=== PATIENT | female | born 1985 | race Caucasian/White ===

== ENCOUNTER 2016-10-07 19:54 | Emergency (ER) | payer BC ==
[2016-10-07 20:01] VITALS: TEMP 98.2; BMI 24.0
[2016-10-07] MEDS ORDERED: SODIUM CHLORIDE 1,000 ML IV STA (20:39)
[2016-10-07] MEDS ORDERED: ACETAMINOPHEN 325 MG TABLET (FP) PO ONE (20:39)
--- NOTE | 2016-10-07 20:39 | PDOC ---
History of Present Illness - General History Source: Patient Exam Limitations: No Limitations - History of Present Illness Initial Comments: 10/07/16 20:45 The patient is a 31 year old female with a significant PMH of anemia and ovarian cysts who presents to the emergency department with RLQ abdominal pain beginning a few days ago. The patient describes the pain as a burning sensation that radiates to the back and the epigastric region. The patient notes that the abdominal pain became worse from yesterday to today, and decided to come to the ED. She reports associated reduced appetite with her abdominal pain. The patient notes that her abdominal pain is alleviated in the morning, but becomes worse during the evening. The patient denies chest pain, shortness of breath, headache and dizziness. Denies fever, chills, nausea, vomit, diarrhea and constipation. Denies dysuria, frequency, urgency and hematuria. Allergies: NKDA Past surgical history: Right wrist surgery Social history: No reported cigarette, alcohol, or drug use. 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 <Wm Scott - Last Filed: 10/08/16 00:39> - General History Source: Patient Exam Limitations: No Limitations <Wm Leiva - Last Filed: 10/08/16 03:47> - General Chief Complaint: Pain Stated Complaint: PAIN, ACUTE Time Seen by Provider: 10/07/16 20:04 Past History <Wm Scott - Last Filed: 10/08/16 00:39> - Psycho/Social/Smoking Cessation Hx Anxiety: No Suicidal Ideation: No Smoking History: Never smoked Have you smoked in the past 12 months: No Information on smoking cessation initiated: No Hx Alcohol Use: No Drug/Substance Use Hx: No Substance Use Type: None <Wm Leiva - Last Filed: 10/08/16 03:47> - Past Medical History Allergies/Adverse Reactions: Allergies Allergy/AdvReac Type Severity Reaction Status Date / Time No Known Allergies Allergy Verified 10/07/16 20:00 Home Medications: Ambulatory Orders Naproxen [Naprosyn -] 500 mg PO BID PRN #28 tablet 10/08/16 Review of Systems - Review of Systems Comments:: 10/07/16 20:45 GENERAL/CONSTITUTIONAL: No fever or chills. No weakness. HEAD, EYES, EARS, NOSE AND THROAT: No change in vision. No ear pain or discharge. No sore throat. CARDIOVASCULAR: No chest pain or shortness of breath. RESPIRATORY: No cough, wheezing, or hemoptysis. GASTROINTESTINAL: (+) RLQ pain radiating to back and epigastric region. No nausea, vomiting, diarrhea or constipation. GENITOURINARY: No dysuria, frequency, or change in urination. MUSCULOSKELETAL: No joint or muscle swelling or pain. No neck or back pain. SKIN: No rash NEUROLOGIC: No headache, vertigo, loss of consciousness, or change in strength/ sensation. ENDOCRINE: No increased thirst. No abnormal weight change. HEMATOLOGIC/LYMPHATIC: (+) Anemia. No easy bleeding or history of blood clots. ALLERGIC/IMMUNOLOGIC: No hives or skin allergy. <Wm Scott - Last Filed: 10/08/16 00:39> *Physical Exam - Vital Signs Last Vital Signs Temp Pulse Resp BP Pulse Ox 98.2 F 73 17 124/59 98 10/07/16 19:58 10/07/16 19:58 10/07/16 19:58 10/07/16 19:58 10/07/16 19:58 - Physical Exam Comments: 10/07/16 20:47 GENERAL: Awake, alert, and fully oriented, in no acute distress HEAD: No signs of trauma EYES: PERRLA, EOMI, sclera anicteric, conjunctiva clear ENT: Auricles normal inspection, hearing grossly normal, nares patent, oropharynx clear without exudates. Moist mucosa NECK: Normal ROM, supple, no lymphadenopathy, JVD, or masses LUNGS: Breath sounds equal, clear to auscultation bilaterally. No wheezes, and no crackles HEART: Regular rate and rhythm, normal S1 and S2, no murmurs, rubs or gallops ABDOMEN: (+) Suprapubic RLQ & LLQ tender to palpation. Soft, normoactive bowel sounds. No guarding, no rebound. No masses EXTREMITIES: Normal range of motion, no edema. No clubbing or cyanosis. No cords, erythema, or tenderness NEUROLOGICAL: Cranial nerves II through XII grossly intact. Normal speech, normal gait SKIN: Warm, Dry, normal turgor, no rashes or lesions noted. <Wm Scott - Last Filed: 10/08/16 00:39> - Vital Signs Last Vital Signs Temp Pulse Resp BP Pulse Ox 98.2 F 73 17 124/59 98 10/07/16 19:58 10/07/16 19:58 10/07/16 19:58 10/07/16 19:58 10/07/16 19:58 <Wm Leiva - Last Filed: 10/08/16 03:47> ED Treatment Course - LABORATORY CBC & Chemistry Diagram: 10/07/16 20:42 10/07/16 20:42 - RADIOLOGY Radiograph Interpretation: 10/08/16 00:39 Exam: Transvaginal US, interpreted by Dr. Nieves. Read by Dr. Leiva. Impression: Small cyst/follicle in the right and left ovary. Fibroid uterus, as described above. <Wm Scott - Last Filed: 10/08/16 00:39> - LABORATORY CBC & Chemistry Diagram: 10/07/16 20:42 10/07/16 20:42 - RADIOLOGY Radiology Studies Ordered: Category Date Time Status ABDOMEN & PELVIS CT WITH CONTR [CT] Stat CT Scan 10/07/16 20:35 Ordered TRANSVAGINAL ULTRASOUND US [US] Stat Ultrasound 10/07/16 20:35 Ordered <Wm Leiva - Last Filed: 10/08/16 03:47> Medical Decision Making - Medical Decision Making 10/07/16 20:37 A portion of this note was documented by scribe services under my direction. I have reviewed the details of the note, within reason, and agree with the documentation with the following case summary and management plan written by me. Patient treated in the ED. Nursing notes are reviewed and incorporated into the medical decision-making. Vital signs reviewed. Peripheral IV access obtained by the nurse, laboratory studies are drawn and sent, reviewed and interpreted by myself. Vital Signs Temp Pulse Resp BP Pulse Ox 98.2 F 73 17 124/59 98 10/07/16 19:58 10/07/16 19:58 10/07/16 19:58 10/07/16 19:58 10/07/16 19:58 31-year-old female patient with no past medical history presents with lower abdominal pain for several days. Patient reports that the pain is worsened today and is now constant. Associated with decreased appetite but denies nausea , vomiting, fevers, dysuria or vaginal bleeding. Patient's last menstrual period is September 23. We'll obtain a urine test. If the test is negative, we'll need to rule out appendicitis versus ovarian cyst rupture. Labs, CAT scan, transvaginal ultrasound and reassess. 10/08/16 03:44 Transvaginal ultrasound ordered. Small cyst and follicle the right and left ovary. Fibroid uterus. CAT scan abdomen pelvis reviewed. Demonstrates ovarian cyst but no signs of appendicitis. CBC, BMP 10/07/16 20:42 10/07/16 20:42 CMP Sodium 136 mmol/L (136-145) 10/07/16 20:42 Potassium 4.0 mmol/L (3.5-5.1) 10/07/16 20:42 Chloride 103 mmol/L (98-107) 10/07/16 20:42 Carbon Dioxide 27 mmol/L (21-32) 10/07/16 20:42 Anion Gap 6 (8-16) L 10/07/16 20:42 BUN 12 mg/dL (7-18) 10/07/16 20:42 Creatinine 0.5 mg/dL (0.55-1.02) L 10/07/16 20:42 Creat Clearance w eGFR > 60 (>60) 10/07/16 20:42 Random Glucose 86 mg/dL (74-106) 10/07/16 20:42 Calcium 9.3 mg/dL (8.5-10.1) 10/07/16 20:42 Total Bilirubin 0.2 mg/dL (0.2-1.0) 10/07/16 20:42 AST 9 U/L (15-37) L 10/07/16 20:42 ALT 19 U/L (12-78) 10/07/16 20:42 Alkaline Phosphatase 47 U/L (45-117) 10/07/16 20:42 Total Protein 7.8 g/dl (6.4-8.2) 10/07/16 20:42 Albumin 3.8 g/dl (3.4-5.0) 10/07/16 20:42 Lipase 155 U/L (73-393) 10/07/16 20:42 Urine Test Results Urine Color Ltyellow 10/07/16 21:33 Urine Appearance Clear 10/07/16 21:33 Urine pH 6.0 (5.0-8.0) 10/07/16 21:33 Ur Specific [place] 1.015 (1.005-1.025) 10/07/16 21:33 Urine Protein Negative (NEGATIVE) 10/07/16 21:33 Urine Glucose (UA) Negative (NEGATIVE) 10/07/16 21:33 Urine Ketones Negative (NEGATIVE) 10/07/16 21:33 Urine Blood 1+ (NEGATIVE) H 10/07/16 21:33 Urine Nitrite Negative (NEGATIVE) 10/07/16 21:33 Urine Bilirubin Negative (NEGATIVE) 10/07/16 21:33 Ur Leukocyte Esterase Negative (NEGATIVE) 10/07/16 21:33 10/08/16 03:44 Urine test negative. I suspect the patient likely had a ruptured ovarian cyst. I checked the patient to follow-up with her SHIPPING PROCESSOR doctor. Return precautions given. Patient will be taken home by her . I discussed the physical exam findings, ancillary test results and final diagnoses with the patient. I answered all of the patient's questions. The patient was satisfied with the care received and felt comfortable with the discharge plan and treatment plan. The patient will call their primary care physician within 24 hours to arrange follow-up and will return to the Emergency Department with any new, persistant or worsening symptoms. <Wm Leiva - Last Filed: 10/08/16 03:47> *DC/Admit/Observation/Transfer - Attestations Scribe Attestion: 10/07/16 20:47 Documentation prepared by Wm Scott, acting as medical billing supervisor for Wm Leiva MD. <Wm Scott - Last Filed: 10/08/16 00:39> - Discharge Dispostion Admit: No <Wm Leiva - Last Filed: 10/08/16 03:47> Diagnosis at time of Disposition: Ovarian cyst Qualifiers: Laterality: bilateral Qualified Code(s): N83.201 - Unspecified ovarian cyst, right side Fibroids Qualifiers: Uterine leiomyoma location: unspecified location Qualified Code(s): D25.9 - Leiomyoma of uterus, unspecified - Discharge Dispostion Disposition: HOME Condition at time of disposition: Improved - Prescriptions Prescriptions: Naproxen [Naprosyn -] 500 mg PO BID PRN #28 tablet PRN Reason: Pain - Referrals Referrals: Maxx Arora MD [Staff Physician] - - Patient Instructions Printed Discharge Instructions: DI for Uterine Fibroids, DI for Ovarian Cyst Additional Instructions: Your CAT scan and ultrasound demonstrates ovarian cyst and fibroids. Take 500 mg of naproxen every 12 hours needed for pain. Please follow-up with an oncologist for further evaluation. It may take several days before your symptoms improved.
[2016-10-07 21:01] LABS: EOSINOPHIL 1.1 % (0-4.5); MCH 26.2 pg (25.7-33.7); MCHC 33.2 g/dl (32.0-36.0); MEAN CELL VOLUME 79.1 fl (80-96); MEAN PLT VOLUME 8.2 fl (7.5-11.1); NEUTROPHILS 42.2 % (42.8-82.8); PLATELET COUNT 453 K/MM3 (134-434); RDW 13.1 % (11.6-15.6); WHITE BLOOD COUNT 7.5 K/mm3 (4.0-10.0)
[2016-10-07] MEDS ORDERED: ACETAMINOPHEN 325 MG TABLET (FP) ONE (21:30)
[2016-10-07 21:34] LABS: ALBUMIN 3.8 g/dl (3.4-5.0); ALK PHOS 47 U/L (45-117); ANION GAP 6 (8-16); BILIRUBIN,TOTAL 0.2 mg/dL (0.2-1.0); CALCIUM 9.3 mg/dL (8.5-10.1); CO2 27 mmol/L (21-32); CREATININE 0.5 mg/dL (0.55-1.02); GLUCOSE,RANDOM 86 mg/dL (74-106); SGOT/AST 9 U/L (15-37); SGPT/ALT 19 U/L (12-78); TOT PROT 7.8 g/dl (6.4-8.2)
[2016-10-07 21:45] LABS: URINE APPEARANCE CLEAR; URINE BILIRUBIN NEGATIVE (NEGATIVE); URINE BLOOD 1+ (NEGATIVE); URINE COLOR LTYELLOW; URINE GLUCOSE (UA) NEGATIVE (NEGATIVE); URINE KETONE NEGATIVE (NEGATIVE); URINE LEUK ESTERASE NEGATIVE (NEGATIVE); URINE NITRITE NEGATIVE (NEGATIVE); URINE PROTEIN NEGATIVE (NEGATIVE); URINE UROBILINOGEN NEGATIVE mg/dL (0.2-1.0)
[2016-10-08] MEDS ORDERED: SODIUM CHLORIDE 1,000 ML IV STA (03:08)
[2016-10-08] MEDS ORDERED: KETOROLAC TROMETHAMINE 30 MG/1 ML VIAL IVPUSH ONE (03:44)
[2016-10-08] MEDS ORDERED: KETOROLAC TROMETHAMINE 30 MG/1 ML VIAL ONE (03:53)
[2016-10-08 04:07] VITALS: BP 100/52; PULSE 91
== END 2016-10-08 04:07 | disposition home or self-care (01) ==
LOC: SUPCPDRO 19:54 → JER 19:54
PROC: 3E0337Z Introduction of Electrolytic and Water Balance Substance into Peripheral Vein, Percutaneous Approach (ICD-10-PCS; principal; 2016-10-07)
PROC: 3E0333Z Introduction of Anti-inflammatory into Peripheral Vein, Percutaneous Approach (ICD-10-PCS; 2016-10-07)
DX: N83.201 Unspecified ovarian cyst, right side (principal); D25.9 Leiomyoma of uterus, unspecified
CPT/HCPCS: 74177-TC; 76830-TC; 80053; 81003; 81015; 83690; 84703; 87086; 96361; 96374; 99283-25

== ENCOUNTER 2018-10-15 12:41 | Emergency (ER) | payer BC, OTHER ==
[2018-10-15 12:54] VITALS: BP 128/72; PULSE 69; TEMP 98.6; BMI 26.4
[2018-10-15] MEDS ORDERED: ACETAMINOPHEN 500 MG TABLET (FP) PO ONE (14:14)
[2018-10-15] MEDS ORDERED: ACETAMINOPHEN 325 MG TABLET (FP) ONE (14:40)
--- NOTE | 2018-10-15 15:00 | PDOC ---
History of Present Illness - General Chief Complaint: Vaginal Bleeding Stated Complaint: PELVIC PAIN/VAGINAL BLEEDING Time Seen by Provider: 10/15/18 14:10 History Source: Patient Exam Limitations: No Limitations - History of Present Illness Travel History: No Initial Comments: 10/15/18 15:05 33 y/o female presents to the ED with vaginal spotting x 3 days with lower abdominal cramping. Pt states LMP 09/03 and did not do a test since she was on vacation. Patient denies fever, urinary or bowel complaints. Timing/Duration: reports: constant Quality: reports: mild, cramping Abdominal Pain Onset Location: reports: suprapubic Pain Radiation: reports: no radiation Activities at Onset: reports: none Aggravating Factors: improves with: None Alleviating Factors: improves with: None Past History - Travel Traveled outside of the country in the last 30 days: No Close contact w/someone who was outside of country & ill: No - Past Medical History Allergies/Adverse Reactions: Allergies Allergy/AdvReac Type Severity Reaction Status Date / Time No Known Allergies Allergy Verified 10/15/18 12:51 Home Medications: Ambulatory Orders Naproxen [Naprosyn -] 500 mg PO BID PRN #28 tablet 10/08/16 - Reproductive History (#): 3 Para: 2 Therapeutic (s) & number: Yes (1) - Suicide/Smoking/Psychosocial Hx Smoking History: Never smoked Have you smoked in the past 12 months: No Hx Alcohol Use: No Drug/Substance Use Hx: No Substance Use Type: None Patient Lives Alone: No Lives with/in: spouse/SO Review of Systems - Review of Systems Able to Perform ROS?: Yes Constitutional: No: Symptoms Reported HEENTM: No: Symptoms Reported Respiratory: No: Symptoms reported Cardiac (ROS): No: Symptoms Reported ABD/GI: Yes: Abdominal cramping. No: Constipated, Diarrhea : No: Symptoms Reported Musculoskeletal: No: Symptoms Reported Integumentary: No: Symptoms Reported Neurological: No: Symptoms reported Endocrine: No: Symptoms Reported Hematologic/Lymphatic: No: Symptoms Reported *Physical Exam - Vital Signs Last Vital Signs Temp Pulse Resp BP Pulse Ox 98.6 F 69 18 128/72 100 10/15/18 12:52 10/15/18 12:52 10/15/18 12:52 10/15/18 12:52 10/15/18 12:52 - Physical Exam General Appearance: Yes: Nourished, Appropriately Dressed. No: Apparent Distress HEENT: negative: Pale Conjunctivae Neck: positive: Supple Respiratory/Chest: positive: Lungs Clear, Normal Breath Sounds. negative: Respiratory Distress, Accessory Muscle Use Cardiovascular: positive: Regular Rhythm, Regular Rate. negative: Murmur Female Pelvic Exam: positive: cervical os closed, normal adnexa, vaginal bleeding (scant bright red blood). negative: CMT, adnexal tenderness Gastrointestinal/Abdominal: positive: Normal Bowel Sounds, Soft, Tenderness ( midsuprapubic) Musculoskeletal: negative: CVA Tenderness Extremity: positive: Normal Inspection Integumentary: positive: Normal Color, Warm, Moist Neurologic: positive: Motor Strength 5/5 (ambulatory) ED Treatment Course - LABORATORY CBC & Chemistry Diagram: 10/15/18 14:40 10/15/18 14:40 - RADIOLOGY Radiology Studies Ordered: Category Date Time Status TRANSVAGINAL US PREG [US] Stat Ultrasound 10/15/18 14:12 Ordered Medical Decision Making - Medical Decision Making 10/15/18 14:09 Chief complaint: Late LMP along with now vaginal cramping and spotting for the past 3 days patient concerned with possible miscarriage Exam. Patient with mid suprapubic tenderness along with bright red blood noted in the vault without adnexal tenderness. Plan: Labs, urine and ultrasound along with Tylenol ordered 10/15/18 17:02 so on Flexeril Toradol because I don't want to give you on Laboratory Tests 10/15/18 14:40 Blood Type B POSITIVE Antibody Screen Negative 10/15/18 17:02 Laboratory Tests 10/15/18 10/15/18 10/15/18 14:30 14:40 14:40 WBC 7.5 RDW 16.1 H Plt Count 524 H MPV 7.3 L D Lymphocytes % 42.7 H Sodium Potassium Chloride Carbon Dioxide Anion Gap BUN Creatinine Random Glucose Calcium AST Beta HCG, Quant Cancelled Ur Specific [place] 1.008 L Urine Bilirubin Negative Ur Leukocyte Esterase Negative Urine WBC (Auto) 0 Urine RBC (Auto) 3 10/15/18 14:40 WBC RDW Plt Count MPV Lymphocytes % Sodium 138 Potassium 4.0 Chloride 106 Carbon Dioxide 24 Anion Gap 7 L BUN 6.8 L Creatinine 0.5 L Random Glucose 80 Calcium 9.4 AST 13 L Beta HCG, Quant 3937.7 Ur Specific [place] Urine Bilirubin Ur Leukocyte Esterase Urine WBC (Auto) Urine RBC (Auto) 10/15/18 18:[address] Thapa radiologist patient suspicious for left ectopic with complex structure to the left adnexa. Call placed to Dr. Mendes, H[employer] TR[employer]MER and is recommending to keep patient nothing by mouth and will consult within the hour. patient moved to room 5. coags ordered IV fluids ordered and will revitalize patient *DC/Admit/Observation/Transfer - Referrals Referrals: Martha Gage [Primary Care Provider] - - Patient Instructions - Post Discharge Activity
[2018-10-15 15:08] LABS: BASO % 1.1 % (0-2.0); EOS % 1.7 % (0-4.5); HEMATOCRIT 34.3 % (32.4-45.2); HEMOGLOBIN 11.1 GM/dL (10.7-15.3); LYMPH % 42.7 % (8-40); MCH 25.1 pg (25.7-33.7); MCHC 32.5 g/dl (32.0-36.0); MEAN CELL VOLUME 77.2 fl (80-96); MEAN PLT VOLUME 7.3 fl (7.5-11.1); MONO % 6.9 % (3.8-10.2); NEUT % 47.6 % (42.8-82.8); PLATELET COUNT 524 K/MM3 (134-434); RBC 4.44 M/mm3 (3.60-5.2); RDW 16.1 % (11.6-15.6); WHITE BLOOD COUNT 7.5 K/mm3 (4.0-10.0)
[2018-10-15 15:10] LABS: EPI CELLS 0.3 /HPF (0-5/HPF); HYALINE CASTS 0 /lpf (0-8); PH,URINE 7.5 (5.0-8.0); URINE APPEARANCE CLEAR; URINE BACTERIA 1.2 /hpf (NEGATIVE); URINE BILIRUBIN NEGATIVE (NEGATIVE); URINE COLOR YELLOW; URINE GLUCOSE (UA) NEGATIVE (NEGATIVE); URINE KETONE NEGATIVE (NEGATIVE); URINE LEUK ESTERASE NEGATIVE (NEGATIVE); URINE NITRITE NEGATIVE (NEGATIVE); URINE PROTEIN NEGATIVE (NEGATIVE); URINE RBC 3 /hpf (0-4); URINE UROBILINOGEN 0.2 mg/dL (0.2-1.0); URINE WBC 0 /hpf (0-5)
[2018-10-15 15:52] LABS: ALBUMIN 3.8 g/dl (3.4-5.0); BILIRUBIN,TOTAL 0.2 mg/dL (0.2-1); BLOOD UREA NITROGEN 6.8 mg/dL (7-18); CALCIUM 9.4 mg/dL (8.5-10.1); CREATININE 0.5 mg/dL (0.55-1.3)
[2018-10-15] MEDS ORDERED: SODIUM CHLORIDE 1,000 ML IV STA (18:20)
--- NOTE | 2018-10-15 19:19 | PDOC ---
*Physical Exam - Vital Signs Last Vital Signs Temp Pulse Resp BP Pulse Ox 98.6 F 69 18 128/72 100 10/15/18 12:52 10/15/18 12:52 10/15/18 12:52 10/15/18 12:52 10/15/18 12:52 ED Treatment Course - LABORATORY CBC & Chemistry Diagram: 10/15/18 14:40 10/15/18 14:40 - ADDITIONAL ORDERS Additional order review: Laboratory Results 10/15/18 10/15/18 10/15/18 14:40 14:40 14:40 Sodium 138 Potassium 4.0 Chloride 106 Carbon Dioxide 24 Anion Gap 7 L BUN 6.8 L Creatinine 0.5 L Est GFR (CKD-EPI)AfAm 145.33 Est GFR (CKD-EPI)NonAf 125.39 Random Glucose 80 Calcium 9.4 Total Bilirubin 0.2 AST 13 L ALT 14 Alkaline Phosphatase 53 Total Protein 8.0 Albumin 3.8 Beta HCG, Quant 3937.7 Cancelled Urine Color Urine Appearance Urine pH Ur Specific [place] Urine Protein Urine Glucose (UA) Urine Ketones Urine Blood Urine Nitrite Urine Bilirubin Urine Urobilinogen Ur Leukocyte Esterase Urine WBC (Auto) Urine RBC (Auto) Urine Casts (Auto) U Epithel Cells (Auto) Urine Bacteria (Auto) Blood Type B POSITIVE Antibody Screen Negative 10/15/18 14:30 Sodium Potassium Chloride Carbon Dioxide Anion Gap BUN Creatinine Est GFR (CKD-EPI)AfAm Est GFR (CKD-EPI)NonAf Random Glucose Calcium Total Bilirubin AST ALT Alkaline Phosphatase Total Protein Albumin Beta HCG, Quant Urine Color Yellow Urine Appearance Clear Urine pH 7.5 D Ur Specific [place] 1.008 L Urine Protein Negative Urine Glucose (UA) Negative Urine Ketones Negative Urine Blood Trace Urine Nitrite Negative Urine Bilirubin Negative Urine Urobilinogen 0.2 Ur Leukocyte Esterase Negative Urine WBC (Auto) 0 Urine RBC (Auto) 3 Urine Casts (Auto) 0 U Epithel Cells (Auto) 0.3 Urine Bacteria (Auto) 1.2 Blood Type Antibody Screen 10/15/18 14:40 RBC 4.44 MCV 77.2 L MCHC 32.5 RDW 16.1 H MPV 7.3 L D Neutrophils % 47.6 Lymphocytes % 42.7 H Monocytes % 6.9 Eosinophils % 1.7 Basophils % 1.1 - Medications Given in the ED: ED Medications Discontinued Medications Generic Name Dose Route Start Last Admin Trade Name Freq PRN Reason Stop Dose Admin Acetaminophen 975 mg 10/15/18 14:14 10/15/18 15:06 Tylenol - PO 10/15/18 14:15 975 mg ONCE ONE Administration Medical Decision Making - Medical Decision Making 10/15/18 19:45 TVUS: Uterus anteverted in position measuring 10.9 x 5.9 x 6.7 cm. Endometrial stripe is heterogeneous with a transverse dimension 1.6 cm. No increased color flow identified within the endometrial stripe. 2 uterine fibroids measuring 3.3 x 3.8 x 2.7 cm and 2.4 x 3.4 x 2.6 cm. There is no evidence of an intrauterine gestational sac. Cervix normal in appearance. Left ovary measures 3.1 x 3.3 x 2.5 cm. Left corpus luteum cyst measuring 2.2 x 1.9 x 2.3 cm. Color flow Doppler arterial signal in left ovary demonstrated. Right ovary not visualized. No right adnexal mass appreciated. CONFIDENTIALITY NOTICE: This information is intended only for the use of the recipi Patient seen by Dr. Bhardwaj. recommends discharge with strict return precautions.Patient is to return in 2 days for repeat beta and reevaluation.Patient has been informed with the strict return precautions. Patient verbalizes understanding. *DC/Admit/Observation/Transfer Diagnosis at time of Disposition: Vaginal bleeding, Pelvic pain - Discharge Dispostion Disposition: HOME - Referrals Referrals: Martha Gage [Primary Care Provider] - - Patient Instructions Printed Discharge Instructions: DI for Vaginal Bleeding Additional Instructions: return to the ER immediately if you are soaking 2 pads per hour, severe abdominal pain, Nausea and dizziness or worsening symptoms. please return to the emergency room in 2 days or repeat beta hCG testing and reevaluation. - Post Discharge Activity Forms/Work/School Notes: Back to Work
[2018-10-15 19:51] LABS: INR 1.14 (0.83-1.09); PROTHROMBIN TIME (PATIENT) 13.5 SEC (9.7-13.0)
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
== END 2018-10-15 20:17 | disposition home or self-care (01) ==
LOC: JER 12:41
PROC: 3E0337Z Introduction of Electrolytic and Water Balance Substance into Peripheral Vein, Percutaneous Approach (ICD-10-PCS; principal; 2018-10-15)
DX: O26.891 Other specified pregnancy related conditions, first trimester (principal); O20.8 Other hemorrhage in early pregnancy; O34.81 Maternal care for other abnormalities of pelvic organs, first trimester; N83.12 Corpus luteum cyst of left ovary; O34.11 Maternal care for benign tumor of corpus uteri, first trimester; D25.9 Leiomyoma of uterus, unspecified; Z3A.01 Less than 8 weeks gestation of pregnancy
CPT/HCPCS: 36415; 76817-TC; 80053; 81003; 84702; 85025; 85610; 86850; 86900; 86901; 87086; 96360; 99282-25; J7030

== ENCOUNTER 2018-10-17 13:48 | Emergency (ER) | payer OTHER ==
[2018-10-17 14:44] VITALS: BP 113/62; PULSE 77; TEMP 98.9; BMI 26.4
--- NOTE | 2018-10-17 14:45 | PDOC ---
History of Present Illness - General Chief Complaint: Pain, Acute Stated Complaint: PELVIC PAIN Time Seen by Provider: 10/17/18 14:03 - History of Present Illness Initial Comments: 10/17/18 14:15 CHIEF COMPLAINT: OB f/u HISTORY OF PRESENT ILLNESS: 33 yo F returns to ED for repeat beta hcg and follow up evaluation after being evaluated 2 days ago. Patient came to ER with c/o of lower abdominal pain and spotting in and had beta 3900s two days ago. Was evaluated by OB for possible ectopic and given strict return instructions for follow up today. LMP 09/03. Patient continues to have lower abdominal pain today. No recent travel or sick contacts. PAST MEDICAL HISTORY: Denies past medical history FAMILY HISTORY: Denies SOCIAL HISTORY: Denies tobacco, alcohol, illicit drug use. SURGICAL HISTORY: Denies ALLERGIES: No known drug allergies REVIEW OF SYSTEMS General/Constitutional: Denies fever or chills. Denies weakness, weight change. HEENT: Denies change in vision. Denies ear pain or discharge. Denies sore throat. Cardiovascular: Denies chest pain or shortness of breath. Respiratory: Denies cough, wheezing, or hemoptysis. Gastrointestinal: Lower abdominal pain and intermittent cramping. Denies nausea , vomiting, diarrhea or constipation. Denies rectal bleeding. Genitourinary: Denies dysuria, frequency, or change in urination. Musculoskeletal: Denies joint or muscle swelling or pain. Denies neck or back pain. Skin and breasts: Denies rash or easy bruising. Neurologic: Denies headache, vertigo, loss of consciousness, or loss of sensation. PHYSICAL EXAM General Appearance: Well-appearing, appropriately dressed. No apparent distress , no intoxication. HEENT: EOMI, PERRLA, normal ENT inspection, normal voice, TMs normal, pharynx normal. No conjunctival pallor. No photophobia, scleral icterus. Neck: Supple. Trachea midline. No tenderness, rigidity, carotid bruit, stridor , lymphadenopathy, or thyromegaly. Respiratory/Chest: Lungs CTAB. No shortness of breath, chest tenderness, respiratory distress, accessory muscle use. No crackles, rales, rhonchi, stridor , wheezing, dullness Cardiovascular: RRR. S1, S2. No JVD, murmur, bradycardia, tachycardia. Vascular Pulses: Dorsalis-Pedis (R): 2+, Dorsalis-Pedis (L): 2+ Gastrointestinal/Abdominal: TTP on lower abdomen, worse on left. Normal bowel sounds. No organomegaly, pulsatile mass, guarding, hernia, hepatomegaly, splenomegaly. Lymphatic: No adenopathy, tenderness. Musculoskeletal/Extremities: Normal inspection. FROM of all extremities, normal capillary refill. Pelvis Stable. No CVA tenderness. No tenderness to extremities, pedal edema, swelling, erythema or deformity. Integumentary: Appropriate color, dry, warm. 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 Fully oriented, alert. Appropriate mood/affect. Motor strength 5/5. No appreciable EOM palsy, facial droop or sensory deficit. Past History - Past Medical History Allergies/Adverse Reactions: Allergies Allergy/AdvReac Type Severity Reaction Status Date / Time No Known Allergies Allergy Verified 10/17/18 13:58 Home Medications: Ambulatory Orders Naproxen [Naprosyn -] 500 mg PO BID PRN #28 tablet 10/08/16 COPD: No - Reproductive History (#): 3 Para: 2 Therapeutic (s) & number: Yes (1) - Suicide/Smoking/Psychosocial Hx Smoking History: Never smoked Have you smoked in the past 12 months: No Hx Alcohol Use: No Drug/Substance Use Hx: No Substance Use Type: None *Physical Exam - Vital Signs Last Vital Signs Temp Pulse Resp BP Pulse Ox 98.9 F 77 16 113/62 99 10/17/18 13:56 10/17/18 13:56 10/17/18 13:56 10/17/18 13:56 10/17/18 13:56 Medical Decision Making - Medical Decision Making 10/17/18 14:48 33 yo F returns to ED for repeat beta hcg and follow up evaluation for ectopic r/o. -beta hcg -TVUS 10/17/18 17:34 beta trending down to 3600 since last visit. discussed with oncall OB Dr. Rosas, who states patient is stable to f/u with Dr. Mendes tomorrow in office. Advised patient to take medication as prescribed and follow up with Dr. Mendes TOMORROW. Advised patient of signs and symptoms for return to ED. Patient verbalized understanding and agrees to plan. *DC/Admit/Observation/Transfer Diagnosis at time of Disposition: Pelvic pain, Vaginal bleeding during - Discharge Dispostion Disposition: HOME Condition at time of disposition: Stable Decision to Admit order: No - Referrals Referrals: Lucita Mendes MD [Staff Physician] - - Patient Instructions Additional Instructions: As discussed, you must follow up with Dr. Mendes in the office tomorrow for continued monitoring of your pelvic discomfort and vaginal bleeding. IF you develop any new or worsening pain, please return to the ER immediately. - Post Discharge Activity
== END 2018-10-17 17:40 | disposition home or self-care (01) ==
LOC: JERFT 13:48
DX: O26.891 Other specified pregnancy related conditions, first trimester (principal); O20.8 Other hemorrhage in early pregnancy; R12 Heartburn; Z3A.01 Less than 8 weeks gestation of pregnancy
CPT/HCPCS: 36415; 76817-TC; 84702; 99282-25